=== PATIENT | male | born 1955 | race African-American/Black ===

== ENCOUNTER 2018-11-23 03:29 | Inpatient (IN) | payer OTHER ==
[~2018-11-23] VITALS: Ht 165 cm; Wt 62.6 kg
[2018-11-23] MEDS ORDERED: ABILIFY10 MG PO (03:56)
[2018-11-23] MEDS ORDERED: ZOLOFT50 MG PO (03:57)
[2018-11-23] MEDS ORDERED: LOXAPINE5 MG PO (03:58)
[2018-11-23 06:15] VITALS: BP 154/93
--- NOTE | 2018-11-23 06:35 | NUR ---
ADMISSION NOTE - PT ARRIVED TO THE UNIT AT APPROXIMATELY 0600 ACCOMPANIED BY [facility]. HE IS ALERT AND ORIENTED 2-3X. HE HAS A HX OF CP. HE HAS WEAKNESS IN HIS LEFT WRIST, AND RIGHT KNEE. PT CAN BE DIFFICULT TO UNDERSTAND RELATED TO A SPEECH IMPAIRMENT. VSS UPON ADMISSION. PT APPEARS TO BE EXTREMELY WORRIED RELATED TO WEAR HIS BELONGINGS WERE. STAFF ASSURED HIM THEY WERE INVENTORIED AND LOCKED UP. HE DOES EXPRESS THAT HE WANTS TO GO BACK 'HOME.' NURSING STAFF INITIATED Q12 CHECKS AND EXPLAINED UNIT RULES TO WHICH PT AGREED TO. WILL GIVE REPORT TO ONCOMING SHIFT AND DETERMINE PLAN OF CARE.
--- NOTE | 2018-11-23 06:40 | NUR ---
Patient arrived from [facility] ED by EMS. Patient alert and oriented to person. Patient currently resides in [facility]. Patient sister is guardian, Miri Puente. Patient has the medical history of Cerebral Palsy and GERD. Patient also has weakness noted to right upper extremity which is baseline for patient. Patient wears a splint to right wrist for protection and stabilization. Patient has mumbled speech at times. Patient slurs words together more when he is anxious and agitated. Patient is allergic to Penecort and PCNs. Facility reports that patient has had an increase in paranoia that the staff is stealing his clothing and personal belongings. Patient has been hitting the trinidad, threatening to hurt self, screaming and crying. Patient has the history of depression. Patient sister and facility feels that medications need to be evaluated and adjusted. Facility states that symptoms have been increasing since approximately 30 days ago. Patient ambulates without assistive devices. Patient denies SI/HI/AH/VH. No s/s of delusional or paranoia behaviors at this time. Patient becomes defensive when asked about depression and/or anxiety. Patient has multiple keys, cards and random items in his pockets. Inventory completed. Patient protective of personal items and frustrated when they were inventoried by staff. Patient has a history of schizophrenia per medical record. Medical record also states that he has been having auditory hallucinations. Patient fixated on returning home. Stating that he wants to go home and that he did not want to be in the hospital. Patient was admitted to [facility] in the past. Patient agitated and anxious during admission process. Patient oriented to unit. Education provided regarding fall prevention. Orders verified with Karin Nazario NP. Regular diet. Full code.
[2018-11-23 07:00] VITALS: BP 115/71
--- NOTE | 2018-11-23 15:29 | NUR ---
PACING ON UNIT [id number] WANTING TO CALL HIS SISTER TO PICK HIM UP. REASSURANCE PROVIDED AND ATE MEALS IN DINNING ROOM AND ATTENDED GROUPS. COOPERATIVE BUT VERY ANXIOUS. SPEECH DIFFICULT TO UNDERSTAND. AAOX2 NAME AND PLACE. GOOD APPETITE. VOIDS IN BATHROOM.
[2018-11-23 19:38] VITALS: BP 127/84
--- NOTE | 2018-11-24 01:04 | NUR ---
ASSUMED CARE OF THE PT AT 1930PM. ALERT ET ORIENTED X 2. MAKES NEEDS KNOWN. WALKS WITH A STEADY GAIT. HEART RATE REGULAR. LUNGS CLEAR BILATERALLY, RESP., EVEN AND UNLABORED. +BS HEARD IN ALL 4 QUADRANTS. ABD SOFT ET NONTENDOR. DENIES ANXIETY AND DEPRESSION, A/V HALLUNICATIONS, DENIES SI/HI. REMAINS ON 12 MINUTE CHECKS.
[2018-11-24 07:00] VITALS: BP 91/54
[2018-11-24 19:17] VITALS: BP 122/78
--- NOTE | 2018-11-24 19:56 | NUR ---
PATIENT ALERT AND ORIENT TO SELF AND LOCATION. PATIENT SISTER AND DPOA CALLED SEVERAL TIMES TODAY INQUIRING ABOUT PATIENT AND PLAN. DR. LOCKETT TO CALL SISTER WITH UPDATE. PATIENT COOPERATIVE WITH TREATMENTS, GROUPS AND OTHER PATIENTS.
[2018-11-24 23:29] VITALS: BP 122/78
--- NOTE | 2018-11-25 03:17 | NUR ---
PT RESTLESS EARLY IN THE SHIFT. OVERLY SENSITIVE TO PROVOCATION BY A SPECIFIC PT. RESPONDED WELL TO REDIRECTION FROM STAFF. TOOK HS MEDS PRESCRIBED AND WENT TO BED. SLEPT WELL THROUGH THE NIGHT. WANTS TO "GO HOME".
[2018-11-25 07:05] VITALS: BP 152/88
[2018-11-25 08:53] VITALS: BP 152/88
--- NOTE | 2018-11-25 10:40 | NUR ---
MARÍA called in left a voicemail for pt DPOA to complete the Psych. Ass. MARÍA provided contact information, and a return call.
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
[2018-11-25 11:42] VITALS: BP 152/88
--- NOTE | 2018-11-25 15:22 | NUR ---
PATIENT HAS BEEN UP AND OUT ON THE UNIT MOST OF THE DAY. TOOK ALL MORNING MEDICATION WHOLE WITHOUT DIFFICULTY. AFFECT IS FLAT MOOD BLUNTED, POOR EYE CONTACT. PATIENT IS EATING MEALS AND DRINKING FLUID WELL. PATIENT DENIES SUICIDAL AND HOMOCIDAL IDEATION. HE LATER BRIGHTENED UP AND STATES HE IS HAPPY BECAUSE " I AM GOING HOME TOMORROW". PATIENT RAMBLES, AND MUMBLEE WORDS, DIFFICULT TO UNDERSTAND AT TIMES. SPLINT IN PLACE TO RIGHT WRIST, PATIENT AMBULATES WITH SLOW SLIGHTLY UNSTEADY GAIT. PATIENT PARTICIPATING IN GROUP THERAPY. PATIENT DENIES HAVING PHYSICAL PAIN, NO SIGN OF ACUTE DISTRESS NOTED AT THIS TIME, WILL MONITOR FOR SAFETY.
--- NOTE | 2018-11-25 16:26 | NUR ---
MARÍA sent d/c notes to [facility] for pt to be d/c on November 26, 2018. MARÍA spoke with Mendez, and he [facility] at 1300 tomorrow. Krista arrange transportation.
--- NOTE | 2018-11-25 18:21 | EKG ---
[address] [place] [address] ELECTROCARDIOGRAM REPORT Name: DOYLE ACUNA Room #: 518B-B ADM IN M.R.#: [id number] ������������������ Admission: 11/23/18 ������������������ Attend Phys: Ozzy Dolan DO Discharge: ������������������ Date of : 53 Report #: [id number] ����������������������������������������������������������������� [id number] THIS REPORT FOR: //name// [facility] Test Date: 2018-11-24 Test Time: 14:39:16 Pat Name: DOYLE ACUNA [facility] Gender: M Management Trainee: Clifford ROLLE : 1955 Requested By: Ozzy Dolan Order Number: [id number] MD: Camilo Montano Measurements Intervals [place] Rate: 63 P: 44 NC: 143 QRS: 50 QRSD: 96 T: 58 QT: 397 QTc: 407 Interpretive Statements Sinus rhythm Repolarization abnormality No previous ECG available for comparison Electronically Signed On 11-25-2018 18:21:44 CDT by Camilo Montano [email or web address] ��������������������������������������������� <ELECTRONICALLY SIGNED> ���������������������������������������� By: Camilo Montano MD, [facility] ��������������������������������������������� 11/25/18 1821 1439 [id number] Camilo Montano MD, FACC /EPI
--- NOTE | 2018-11-25 21:23 | NUR ---
PT SITTING IN DAY ROOM PERIPHERAY OF PEERS. PT SMILING AND INITIATING INTERACTIONS WITH STAFF MEMEBERS. GAIT STEADY. COMPLIANT WITH MEDS AND HS SNACK.
[2018-11-26 08:16] VITALS: BP 141/87
--- NOTE | 2018-11-26 10:52 | NUR ---
ASSUMED PATIENT CARE AT 0700. PATIENT ALREADY UP, SITTING IN D.R. AT TABLE. EXCITED ABOUT HIS PENDING DISCHARGE FOR TODAY, RETURNING TO RESIDENTIAL. PATIENT STATED THAT HE IS GOING "INDEPENDENT." NURSE ASKED IF HE IS AFRAID TO GO INDEPENDENT, TO WHICH HE REPLIED "YES."
--- NOTE | 2018-11-26 11:53 | NUR ---
Patient Name: DOYLE ACUNA Admission Date: 11/23/18 DISCHARGE PLAN: Pt will be d/c to the [facility]. Care Assessment: Pt was assessed by Dr. Dolan, and diagnosed with Schizophrenia, and Intellectual Disability Disorder. Level II Assessment: None Transportation: Pt will be transported by [facility]. Special Instructions/Notes: Pt will need continuance care with a Psychiatrist at [facility]. DISCHARGE TO FACILITY: Shelter Facility: [facility] Fax: Address: [address] [place] [id number] Contact Name: Mendez PCP: GOYO Psychiatrist: Dr. Ismael Guevara
[2018-11-26] MEDS ORDERED: LOXAPINE5 MG PO ×2 (12:44→12:45)
[2018-11-26] MEDS ORDERED: PEPCID20 MG PO (12:45)
[2018-11-26] MEDS ORDERED: COLACE 100 MG100 MG PO (12:45)
--- NOTE | 2018-11-26 14:15 | NUR ---
PATIENT DISCHARGED TO NURSING HOME AT 1410 P.M., ACCOMPANIED BY [facility]TING PRESS OPERATOR. ALL BELONGINGS WERE RETURNED TO PATIENT, WELL PRESCRIPTIONS AND ALL RELEVANT PAPER WORK, SENT IN ENVELOP WITH [facility].
--- NOTE | 2018-11-27 09:53 | D ---
[facility] [place] [address] DISCHARGE SUMMARY Name: DOYLE ACUNA Room #: 518B-B DIS IN M.R.#: [id number] Admission: 11/23/18 ������������������ Attend Phys: Ozzy Dolan DO Discharge: 11/26/18 ������������������ Date of : 53 Report #: [id number] THIS REPORT FOR: //name// CC: Ozzy BORREGO unknown DATE OF SERVICE: 11/26/2018 INPATIENT PSYCHIATRIC DISCHARGE SUMMARY ATTENDING: Ozyz Dolan DO. PARTS ROOM CLERK AT THE TIME OF DISCHARGE: Justice Brown MD DISCHARGE DIAGNOSES: As follows: Schizophrenia, intellectual disability, likely moderate degree, cerebral palsy. Other medical comorbidities, none are noted. DISPOSITION: The patient is discharged to the [facility] [place]. Psychiatric care and treatment will be per that facility. DISCHARGE MEDICATIONS: Loxapine 5 mg oral b.i.d. at 0700 and 1400 and Loxapine 10 mg p.o. at 2100 for psychosis and mood stabilization. Docusate 100 mg p.o. daily for bowel motility, famotidine 20 mg oral daily for GERD, continue sertraline 150 mg p.o. daily for depression this admission. Aripiprazole was discontinued due to polypharmacy and possibly conflicting with binding of loxapine. Laboratories were not done at this facility. They were done at [facility], I believe. Electrocardiogram was done on 11/23/2018, QTc 407, QT 397, SD interval 143 and rate 63, sinus rhythm. REASON FOR ADMISSION: A 63-year-old male sent from his long-term. Apparently, this facility reported the patient had an increasing paranoia that the staff is stealing his clothing, personal belongings. The patient was hitting trinidad and threatening to hurt himself, screaming and crying. HOSPITAL COURSE: The patient was admitted to the Geriatric Psychiatry Unit. The patient was enthusiastic, redirectable, self-injurious during admission. Major changes to medication were streamlining the loxapine, discontinuing the Abilify. I spoke with his sister, MEME, decision maker, Miri. It sounds like the patient has had some conflicts with some new or a particular long-term staff. I discussed that it was important that these issues be discussed with management of the long-term. Ms. Argueta, our long term care social worker spoke with the manager emergency department of the long-term. At the time of discharge, the patient was not suicidal or homicidal, was future oriented, wanting to return to his previous living environment. [facility] [address] [place] [address] DISCHARGE SUMMARY Name: DOYLE ACUNA Room #: 518B-B DIS IN M.R.#: [id number] Admission: 11/23/18 ������������������ Attend Phys: Ozzy Dolan DO Discharge: 11/26/18 ������������������ Date of : 53 Report #: [id number] PHYSICAL EXAMINATION: VITAL SIGNS: On day of discharge are as follows: Temperature 36.8, pulse 70, respirations 16, BP 141/87, O2 sat 100%. MUSCULOSKELETAL: Relatively normal gait. Normal station. MENTAL STATUS EXAMINATION: This is a well-developed, male with clear intellectual disability. Speech, baseline degree of dysarthria. Attention and concentration, both limited. Thought process linear, limited thought content. Focused on discharge. Some psychomotor agitation, likely baseline. No psychomotor retardation. Mood and affect congruent and bright, euthymic. Denied SI or HI. Denied hopelessness or helplessness. Memory not formally tested, known to be impaired. Insight limited. Judgment fair. Fund of knowledge below average. Prognosis for this patient is fair to guarded depending on compliance with followup with degree of attention he gets in developmental disability setting. Also noted his psychiatrist is Dr. Eugene Jimenez. Referral was given for [facility] for additional life skill services for this patient. ��������������������������������������������� <ELECTRONICALLY SIGNED> ���������������������������������������� By: Ozzy Dolan DO ��������������������������������������������� 11/27/18 0953 [id number] Ozzy Dolan DO /nt
== END 2018-11-26 14:15 | disposition home or self-care (01) | DRG 885 ==
LOC: SBH 03:29
PROVIDERS: ADMIT Psychiatry & Neurology Psychiatry
DX: F20.9 Schizophrenia, unspecified (principal); F71 Moderate intellectual disabilities; G80.9 Cerebral palsy, unspecified; F32.9 Major depressive disorder, single episode, unspecified; K21.9 Gastro-esophageal reflux disease without esophagitis; Z88.0 Allergy status to penicillin; Z88.6 Allergy status to analgesic agent
CPT/HCPCS: 10880